=== PATIENT | female | born 1990 | race African-American/Black ===

== ENCOUNTER 2018-01-26 15:54 | Emergency (ER) | payer MEDICAID, OTHER ==
[~2018-01-26] VITALS: Ht 165.1 cm; Wt 65.0 kg
[~2018-01-26 15:54] MED LIST: METR0.7537 TOP; Z.0.NO CURRENT MEDS
[2018-01-26 16:08] VITALS: BP 129/79; PULSE 61; RESP 16; TEMP 97.8; O2SAT 99
[2018-01-26 18:00] VITALS: BP 131/81; PULSE 64; RESP 15; O2SAT 100
[2018-01-26] MEDS ORDERED: SODIUM CHLOR 0.9% 1000 ML INJ 1,000 ML IV ONE (18:15)
[2018-01-26] MEDS ORDERED: FAMOTIDINE 20 MG TAB PO ONE (18:15)
[2018-01-26] MEDS ORDERED: ONDANSETRON HCL 4 MG/2 ML VIAL IV ONE (18:15)
[2018-01-26 18:39] LABS: BASOPHIL # 0.1 TH/MM3 (0-0.2); BASOPHIL % 0.3 % (0.0-2.0); HEMOGLOBIN 13.8 GM/DL (11.6-15.3); LYMPH % 13.8 % (9.0-44.0); LYMPHOCYTE # 2.5 TH/MM3 (1.0-4.8); MEAN CELL VOLUME 89.9 FL (80.0-100.0); MEAN CORPUSCULAR HEMOGLOBIN 29.6 PG (27.0-34.0); MEAN CORPUSCULAR HGB CONC 32.9 % (32.0-36.0); MEAN PLATELET VOLUME 8.4 FL (7.0-11.0); MONOCYTE # 0.7 TH/MM3 (0-0.9); NEUT % 81.9 % (16.0-70.0); PLATELET COUNT 303 TH/MM3 (150-450); RED BLOOD COUNT 4.67 MIL/MM3 (4.00-5.30); RED CELL DISTRIBUTION WIDTH 13.8 % (11.6-17.2); WHITE BLOOD COUNT 18.3 TH/MM3 (4.0-11.0)
[2018-01-26 18:53] LABS: ALBUMIN 4.4 GM/DL (3.4-5.0); AST (GOT) 31 U/L (15-37); BLOOD UREA NITROGEN 10 MG/DL (7-18); CALCIUM 8.8 MG/DL (8.5-10.1); CHLORIDE 106 MEQ/L (98-107); CREATININE 0.83 MG/DL (0.50-1.00); GLOMERULAR FILTRATION RATE 98 ML/MIN (>89); GLUCOSE,RANDOM 80 MG/DL (74-106); SODIUM (NA) 138 MEQ/L (136-145)
[2018-01-26 18:54] LABS: ALT (GPT) 40 U/L (10-53)
[2018-01-26 18:56] LABS: ALKALINE PHOSPHATASE 96 U/L (45-117); TOTAL BILIRUBIN ADULT 0.2 MG/DL (0.2-1.0); TOTAL PROTEIN 8.6 GM/DL (6.4-8.2)
[2018-01-26] MEDS ORDERED: ONDA4TAB7 SL (19:17)
[2018-01-26] MEDS ORDERED: RANI150T PO (19:17)
--- NOTE | 2018-01-26 19:17 | PD ---
HPI Chief Complaint: GI Complaint Time Seen by Provider: 18:05 Travel History International Travel<30 days: No Contact w/Intl Traveler<30days: No Traveled to known affect area: No History of Present Illness HPI 27-year-old presents emerged [place] nausea vomiting ongoing for today, little bit of blood, some diarrhea last night, some abdominal cramping. Otherwise been well. No sick contacts. No unusual foods. 2 previous , no other abdominal surgeries. No NSAIDs, no alcohol. Otherwise had been feeling generally well. History Past Medical History Medical History: Denies Significant Hx LMP: 01/20/18 Menopausal: No : 1 Para: 1 Social History Alcohol Use: No Tobacco Use: Yes (10/23 PPD) Allergies-Medications (Allergen,Severity, Reaction): Coded Allergies: No Known Allergies (Verified Adverse Reaction, Unknown, 01/26/18) Reported Meds & Prescriptions Reported Meds & Active Scripts Active No Active Prescriptions or Reported Medications Review of Systems Except as stated in HPI: all other systems reviewed are Neg Physical Exam Narrative GENERAL: Well-appearing 27-year-old woman, no acute distress. SKIN: Focused skin assessment warm/dry. HEAD: Atraumatic. Normocephalic. EYES: Pupils equal and round. No scleral icterus. No injection or drainage. ENT: No nasal bleeding or discharge. Mucous membranes pink and moist. NECK: Trachea midline. No JVD. CARDIOVASCULAR: Regular rate and rhythm. No murmur appreciated. RESPIRATORY: No accessory muscle use. Clear to auscultation. Breath sounds equal bilaterally. GASTROINTESTINAL: Abdomen soft, non-tender, nondistended. Hepatic and splenic margins not palpable. MUSCULOSKELETAL: No obvious deformities. No clubbing. No cyanosis. No edema. NEUROLOGICAL: Awake and alert. No obvious cranial nerve deficits. Motor grossly within normal limits. Normal speech. PSYCHIATRIC: Appropriate mood and affect; insight and judgment normal. Data Data Last Documented VS Vital Signs Date Time Temp Pulse Resp B/P (MAP) Pulse Ox O2 Delivery O2 Flow Rate FiO2 01/26/18 18:00 64 15 131/81 (98) 100 Room Air 01/26/18 16:08 97.8 Orders Orders Complete Blood Count With Diff (01/26/18 18:13) Comprehensive Metabolic Panel (01/26/18 18:13) Lipase (01/26/18 18:13) Iv Access Insert/Monitor (01/26/18 18:13) Sodium Chlor 0.9% 1000 Ml Inj (Ns 1000 M (01/26/18 18:15) Ondansetron Inj (Zofran Inj) (01/26/18 18:15) Famotidine (Pepcid) (01/26/18 18:15) Labs Laboratory Tests Test 01/26/18 18:20 White Blood Count 18.3 TH/MM3 Red Blood Count 4.67 MIL/MM3 Hemoglobin 13.8 GM/DL Hematocrit 42.0 % Mean Corpuscular Volume 89.9 FL Mean Corpuscular Hemoglobin 29.6 PG Mean Corpuscular Hemoglobin Concent 32.9 % Red Cell Distribution Width 13.8 % Platelet Count 303 TH/MM3 Mean Platelet Volume 8.4 FL Neutrophils (%) (Auto) 81.9 % Lymphocytes (%) (Auto) 13.8 % Monocytes (%) (Auto) 4.0 % Eosinophils (%) (Auto) 0.0 % Basophils (%) (Auto) 0.3 % Neutrophils # (Auto) 15.0 TH/MM3 Lymphocytes # (Auto) 2.5 TH/MM3 Monocytes # (Auto) 0.7 TH/MM3 Eosinophils # (Auto) 0.0 TH/MM3 Basophils # (Auto) 0.1 TH/MM3 CBC Comment DIFF FINAL Differential Comment Blood Urea Nitrogen 10 MG/DL Creatinine 0.83 MG/DL Random Glucose 80 MG/DL Total Protein 8.6 GM/DL Albumin 4.4 GM/DL Calcium Level 8.8 MG/DL Alkaline Phosphatase 96 U/L Aspartate Amino Transf (AST/SGOT) 31 U/L Alanine Aminotransferase (ALT/SGPT) 40 U/L Total Bilirubin 0.2 MG/DL Sodium Level 138 MEQ/L Potassium Level 3.5 MEQ/L Chloride Level 106 MEQ/L Carbon Dioxide Level 23.0 MEQ/L Anion Gap 9 MEQ/L Estimat Glomerular Filtration Rate 98 ML/MIN Lipase 50 U/L [facility] Medical Decision Making Medical Screen Exam Complete: Yes Emergency Medical Condition: Yes Interpretation(s) LABS: CBC remarkable for white count of 18.3 thousand CMP is unremarkable Lipase is normal Differential Diagnosis Gastritis, cholecystitis, pancreatitis, other Narrative Course Vomiting, likely gastritis. Lipase is normal. No tenderness over the gallbladder. Labs are normal. She looks well. White counseled bit elevated. Recommend supportive treatment at this point. Diagnosis Primary Impression: Gastritis Additional Instructions: Take ranitidine as prescribed. Use Zofran as needed for nausea or vomiting. Return to the emergency room if any worsening abdominal pain, or any other new or worsening symptoms. Follow with her primary doctor in 2-3 days if not completely well. Med/Other Pt SpecificInfo: Prescription(s) given Scripts Ondansetron Odt (Ondansetron Odt) 4 Mg Tab 4 MG SL Q8HR Y for Nausea/Vomiting, #15 TAB 0 Refills Prov: Johann Pretty MD 01/26/18 Ranitidine (Ranitidine) 150 Mg Tab 150 MG PO BID for Heartburn Management, #60 TAB 0 Refills Prov: Johann Pretty MD 01/26/18 Disposition: 01 DISCHARGE HOME Condition: Stable Johann Pretty MD Jan 26, 2018 19:17
[2018-01-26 19:30] VITALS: BP 104/54
== END 2018-01-26 19:34 | disposition home or self-care (01) ==
LOC: NEPE 15:54
DX: K29.70 Gastritis, unspecified, without bleeding (principal); F17.200 Nicotine dependence, unspecified, uncomplicated
CPT/HCPCS: 80053; 83690; 85025; 96374; 99284; J2405; J7030